=== PATIENT | female | born 1940 | race Caucasian/White ===

== ENCOUNTER 2018-06-11 09:02 | Outpatient (CLI) | payer MEDICARE | END 2018-06-11 09:03 | disposition home or self-care (01) | LOC: BICMAMMO 09:02 | PROVIDERS: ATTEND Obstetrics & Gynecology | DX: Z12.31 Encounter for screening mammogram for malignant neoplasm of breast (principal); Z80.3 Family history of malignant neoplasm of breast | CPT/HCPCS: 77063; 77067 ==

== ENCOUNTER 2019-06-15 08:24 | Outpatient (CLI) | payer MEDICARE ==
--- NOTE | 2019-06-15 09:12 | MMO ---
Bilateral MAMMO Bilat Screen DDI+LEDY. CLINICAL HISTORY: Patient is 79 years old and is seen for screening. The patient has no personal history of cancer. VIEWS: The views performed were: bilateral craniocaudal with tomosynthesis and bilateral mediolateral oblique with tomosynthesis. FILMS COMPARED: The present examination has been compared to prior imaging studies performed at [facility] on 04/21/2015, 05/09/2016, 05/12/2017 and 06/11/2018. MAMMOGRAM FINDINGS: There are scattered fibroglandular densities. Right breast: There are no suspicious masses, calcifications or areas of architectural distortion. Left breast: round 5 mm mass in the retroareolar region. In the right breast, there are no suspicious masses, calcifications or areas of architectural distortion. IMPRESSION: FINDING IN THE LEFT BREAST REQUIRES ADDITIONAL EVALUATION. ADDITIONAL PROJECTIONS (LEFT CRANIOCAUDAL SPOT COMPRESSION; LEFT MEDIOLATERAL OBLIQUE SPOT COMPRESSION; AND LEFT MEDIOLATERAL) ARE RECOMMENDED. ULTRASOUND IF MASS PERSISTS. THE RESULTS OF THIS EXAM WERE SENT TO THE PATIENT. ACR BI-RADS Category 0 - Incomplete: Need additional imaging evaluation. [facility] [place] notify the patient of the need for additional imaging services. MAMMOGRAPHY NOTE: 1. A negative mammogram report should not delay a biopsy if a dominant of clinically suspicious mass is present. 2. Approximately 10% to 15% of breast cancers are not detected by mammography. 3. Adenosis and dense breasts may obscure an underlying neoplasm. Reported by: BENITEZ SANTANA MD Electonically Signed: [id number]
== END 2019-06-15 08:25 | disposition home or self-care (01) ==
LOC: BICMAMMO 08:24
PROVIDERS: ATTEND Obstetrics & Gynecology
DX: Z12.31 Encounter for screening mammogram for malignant neoplasm of breast (principal); R92.8 Other abnormal and inconclusive findings on diagnostic imaging of breast
CPT/HCPCS: 77063; 77067

== ENCOUNTER 2019-06-18 12:36 | Outpatient (CLI) | payer MEDICARE ==
--- NOTE | 2019-06-22 06:46 | MMO ---
Left Breast MAMMO Unilat Diag DDI LT+LEDY. CLINICAL HISTORY: Patient is 79 years old and is seen for diagnostic exam. The patient has no family history of breast cancer. The patient has no personal history of cancer. VIEWS: The views performed were: left craniocaudal with tomosynthesis; left mediolateral oblique with tomosynthesis; and left mediolateral with tomosynthesis. FILMS COMPARED: The present examination has been compared to prior imaging studies performed at [facility] on 05/09/2016, 05/12/2017, 06/11/2018 and 06/15/2019. MAMMOGRAM FINDINGS: There are scattered fibroglandular densities. There is a stable equal density, oval mass measuring 5 millimeters with circumscribed margins seen in the sub-areolar region of the left breast. There are no suspicious masses, suspicious calcifications, or new areas of architectural distortion. IMPRESSION: THERE IS NO MAMMOGRAPHIC EVIDENCE OF MALIGNANCY. THE FINDINGS AND RECOMMENDATIONS WERE DISCUSSED WITH THE PATIENT PRIOR TO HER LEAVING THE CENTER. A ROUTINE FOLLOW-UP MAMMOGRAM IN 1 YEAR IS RECOMMENDED. THE RESULTS OF THIS EXAM WERE SENT TO THE PATIENT. ACR BI-RADS Category 2 - Benign finding MAMMOGRAPHY NOTE: 1. A negative mammogram report should not delay a biopsy if a dominant of clinically suspicious mass is present. 2. Approximately 10% to 15% of breast cancers are not detected by mammography. 3. Adenosis and dense breasts may obscure an underlying neoplasm. Reported by: URBAN CRANDALL MD Electonically Signed: [id number]
== END 2019-06-18 12:37 | disposition home or self-care (01) ==
LOC: BICMAMMO 12:36
PROVIDERS: ATTEND Obstetrics & Gynecology
DX: N63.20 Unspecified lump in the left breast, unspecified quadrant (principal)
CPT/HCPCS: 77065; G0279